=== PATIENT | male | born 1960 | race African-American/Black ===

== ENCOUNTER 2017-03-10 10:03 | Emergency (ER) | payer BC ==
[~2017-03-10] VITALS: Ht 182.9 cm; Wt 79.0 kg
[2017-03-10 10:05] VITALS: BP 146/80
== END 2017-03-10 10:59 | disposition home or self-care (01) ==
LOC: ED 10:45
DX: J20.9 Acute bronchitis, unspecified (principal); I10 Essential (primary) hypertension
CPT/HCPCS: 71020; 99284